=== PATIENT | female | born 1975 | race Caucasian/White ===

== ENCOUNTER → 2017-03-27 | Outpatient (CLI) | payer BC ==
[~2017-03-27] MED LIST: DOXY100C2 PO; FEXO1TAB49 PO; FLUT0.15 NAE; HYDR-5688 PO; IBUP-1450 PO; METR-163 PO; ONDA4TAB10 SL; OXYC-57 PO; VNTHFA/IN INH
== END | disposition home or self-care (01) ==
LOC: C.PAPS 14:07
PROVIDERS: ATTEND Obstetrics & Gynecology
DX: Z01.419 Encounter for gynecological examination (general) (routine) without abnormal findings (principal)

== ENCOUNTER → 2017-08-20 | Outpatient (CLI) | payer BC ==
[~2017-08-20] MED LIST changes: -DOXY100C2 PO; -METR-163 PO; -ONDA4TAB10 SL
--- NOTE | 2017-08-20 15:17 | MAMMOGRAPHY REPORT ---
BILATERAL DIGITAL SCREENING MAMMOGRAM TOMOSYNTHESIS WITH CAD: 08/20/2017 CLINICAL HISTORY: Routine screening. TECHNIQUE: Breast tomosynthesis in addition to standard 2D mammography was performed. Current study was also evaluated with a Computer Aided Detection (CAD) system. COMPARISON: Comparison is made to exams dated: 08/14/2016 stereotactic biopsy, 08/14/2016 mammogram, mammogram, 01/31/2016 mammogram, 08/02/2015 mammogram, and 07/26/2015 mammogram - [facility]. BREAST COMPOSITION: The tissue of both breasts is heterogeneously dense, which may obscure small mas ses. FINDINGS: A linear scar marker overlies the upper outer quadrant of the left breast, denoting an area of surgical excisional biopsy. Although atypia was identified at stereotactic biopsy, no residual a typia, DCIS or invasive carcinoma was identified at surgical excisional biopsy. There are diffuse sc attered and grouped benign-appearing microcalcifications bilaterally. No obvious new mass, asymmetry , focal area of architectural distortion or new suspicious calcifications are identified. IMPRESSION: ACR BI-RADS CATEGORY 1: NEGATIVE Expected postsurgical changes in the left upper outer quadrant, without mammographic evidence of gauri gnancy bilaterally. A 1 year screening mammogram is recommended. The patient will receive written no tification of the results. Approximately 10% of breast cancers are not detected with mammography. A negative mammographic report should not delay biopsy if a clinically suggestive mass is present. Analia Obrien M.D. ay/:08/20/2017 12:44:12 Costume Shop Manager: Arlette ROBLES(R)(M), [facility] letter sent: Normal 1/2 BI-RADS Code: ACR BI-RADS Category 1: Negative
== END | disposition home or self-care (01) ==
LOC: C.MAMM 11:06
PROVIDERS: ATTEND Surgery
DX: Z12.31 Encounter for screening mammogram for malignant neoplasm of breast (principal); N64.89 Other specified disorders of breast

== ENCOUNTER → 2017-09-02 | Outpatient (CLI) | payer BC ==
[~2017-09-02] MED LIST changes: -FEXO1TAB49 PO; -FLUT0.15 NAE; -OXYC-57 PO; -VNTHFA/IN INH
[2017-09-02 16:35] LABS: BASO % 0.3 %; BASO ABS # 0.02 K/uL (0-0.2); COMPLETE YES; EOS % 2.5 %; HEMATOCRIT 39.4 % (37-47); IG% 0.3 %; LYMPH % 31.3 %; LYMPH ABS # 2.16 K/uL (1.2-3.4); MEAN CELL VOLUME 95.4 fL (80-100); MEAN CORPUSCULAR HEMOGLOBIN 32.9 pg (25-34); MEAN CORPUSCULAR HGB CONC 34.5 g/dl (32-36); MEAN PLATELET VOLUME 9.3 fL (7.4-10.4); MONO % 7.8 %; NEUT % 57.8 %; PLATELET COUNT 294 K/uL (130-400); RED BLOOD COUNT 4.13 M/uL (4.2-5.4); WHITE BLOOD COUNT 6.89 K/uL (4.8-10.8)
== END | disposition home or self-care (01) ==
LOC: C.LAB1850 15:38
PROVIDERS: ATTEND Obstetrics & Gynecology
DX: Z01.812 Encounter for preprocedural laboratory examination (principal)

== ENCOUNTER 2017-09-12 10:15 | Observation (INO) | payer BC ==
[~2017-09-12] VITALS: Ht 170.2 cm; Wt 60.0 kg
[2017-09-12] VITALS (12 sets, daily range): BP systolic 89–120; BP diastolic 49–81; PULSE 57–83; TEMP 36.3–37; O2SAT 97–100; Ht 170.2 cm; Wt 60.0 kg
[~2017-09-12 10:15] MED LIST changes: +ATROPINE SULFATE 0.1 MG/ML 5ML SYR IV PRN; +EpHEDrine SULFATE INJ 50 MG/ML AMP IV PRN; +FEXO1TAB49 PO; +FLUT0.15 NAE; -HYDR-5688 PO; +HYDROmorphone INJ 1 MG/ML SYR IV PRN; +LABETALOL HCL IV 5 MG/ML 20ML IV PRN; +LACTATED RINGER'S 1000ML 1,000 ML IV SCH; +MEPERIDINE HCL 25 MG/ML CARP IV PRN; +ONDANSETRON INJ 2 MG/ML 2 ML VIAL IV PRN; +VNTHFA/IN INH
[2017-09-12] MEDS ORDERED: MIDAZOLAM HCL 1 MG/ML 2ML VIAL ONE (11:02)
[2017-09-12] MEDS ORDERED: FENTANYL CITRATE INJ 50 MCG/1 ML 2 ML VIAL ONE ×3 (11:02→12:49)
[2017-09-12 11:14] LABS: PREG INTERNAL NEGATIVE QC NEG CLEAR BACKGROUND; PREG INTERNAL POSITIVE QC POS CONTROL LINE
[2017-09-12] MEDS ORDERED: PROPOFOL IV EMULSION 10 MG/ML 20 ML VIAL IV ONE (11:14)
[2017-09-12] MEDS ORDERED: LIDOCAINE 2% 20 MG/ML 5ML SYR ONE (11:14)
--- NOTE | 2017-09-12 11:45 | History & Physical Bridge Note ---
H&P Re-Evaluation Bridge Note: I have examined the patient, reviewed the History & Physical and in the interval since the performance of the History & Physical I have noted the following changes of clinical significance: No changes noted
[2017-09-12] MEDS ORDERED: ONDANSETRON INJ 2 MG/ML 2 ML VIAL ONE (12:13)
[2017-09-12] MEDS ORDERED: DEXAMETHASONE SOD INJ 4 MG/ML VIAL ONE (12:13)
--- NOTE | 2017-09-12 13:24 | [facility] Operative Report ---
Operative Report Operative Date Sep 12, 2017. Pre-Operative Diagnosis Rectocele Post-Operative Diagnosis Same as preop Procedure(s) Performed Rectocele Repair Surgeon Dr. Hancock Feed Mixer Surgeon(s) Dr. Parham Estimated Blood Loss 150 cc Findings Moderate to large high rectocele. Minimal to moderate cystocele. Grade 2 uterine descent only with pulling with an Allis clamp. Fluids 1000 Specimens A: vaginal tissue Drains Simeon, vaginal packing Anesthesia Gen. Complication(s) None Disposition Recovery Room / PACU Indications 42-year-old who is completed her childbearing with history of pelvic pressure and bulge at the introitus after lifting a heavy sofa. On evaluation in the office only a significant rectocele could be noted. The patient felt that this tissue at her introitus was new. Even with supine and standing examination I could not see a significant cystocele or uterine prolapse. She desired repair of the rectocele to see if that would improve her symptoms. No rectal splinting. She was advised about pelvic floor surgeon consult but desired to proceed more immediately with repair locally. Risks of the procedure were reviewed and most importantly included nonresolution of her complaints, possibly requiring further procedures or evaluations.. Description of Procedure The patient was taken to the operating room and identified. After adequate general anesthesia was obtained she was placed in the dorso lithotomy position and prepped and draped in usual sterile fashion. A Simeon catheter was placed. Attention was turned to the patient's vagina where her vaginal prolapse was examined and with Valsalva provided by anesthesia revealed the findings as noted above. The patient did have a normal introitus and in fact the rectocele began about a couple centimeters above the opening of the vagina. Allis clamps were used as traction to create a triangular shaped area of excision at the perineum. Using traction and the Metzenbaum scissors the space between the vagina and the underlying rectum was dissected. This is carried to the apex of the rectocele and planned rectocele repair. Using both sharp and blunt dissection the rectal fascia was dissected off of the overlying vagina. With interrupted sutures of 0 Vicryl the fascia was reapproximated across the midline. The vaginal tissues were then trimmed and reapproximated in a running interlocking fashion using 0 Vicryl. A perineorrhaphy was also performed. Bleeding sites were cauterized along the way. A rectal exam was performed to better assess the apex of the rectocele prior to placing the bridging sutures.. The vaginal exam at the end of the closure included normal admission of fingers in the vagina with normal caliber of the vagina noted. The vagina was then packed with [place] covered vaginal packing. All the instruments were removed. The patient was returned to the supine position and awoken from anesthesia. She was taken to the recovery room in stable condition. All sponge, lap and needle counts are correct 2 I attest to the content of the Intraoperative Record and any orders documented therein. Any exceptions are noted below.
[2017-09-12] MEDS: FENTANYL CITRATE INJ 50 MCG/1 ML 2 ML VIAL IV PRN ×4 (13:29→13:44)
[2017-09-12] MEDS ORDERED: OXYCODONE/ACETAMINOPHEN 5-325 TAB PO PRN (13:30)
[2017-09-12] MEDS ORDERED: ZOLPIDEM TARTRATE 5 MG TAB PO PRN (13:30)
[2017-09-12] MEDS ORDERED: IBUPROFEN 600 MG TAB PO PRN (13:30)
[2017-09-12] MEDS ORDERED: ONDANSETRON INJ 2 MG/ML 2 ML VIAL IV PRN (13:30)
[2017-09-12] MEDS ORDERED: ACETAMINOPHEN 325 MG TAB PO PRN (13:30)
[2017-09-12] MEDS ORDERED: KETOROLAC TROMETHAMINE 30 MG/ML VIAL IV. PRN (13:30)
--- NOTE | 2017-09-12 14:26 | Anesthesiology Progress Note ---
Anesthesia Post Op Note Date & Time Sep 12, 2017 at 14:26 Vital Signs Pain Intensity: 4 Vital Signs Past 12 Hours Date Time Temp Pulse Resp B/P (MAP) Pulse Ox O2 Delivery O2 Flow Rate FiO2 09/12/17 14:10 62 18 110/66 99 Nasal Cannula 2 09/12/17 14:00 60 18 114/63 99 Nasal Cannula 2 09/12/17 13:50 36.4 60 18 111/62 100 Nasal Cannula 2 09/12/17 13:40 65 18 111/70 100 Oxymask 5 09/12/17 13:30 78 18 115/59 100 Oxymask 5 09/12/17 13:24 36.4 74 18 115/63 100 Oxymask 5 09/12/17 10:39 36.7 60 18 109/74 (86) 100 Room Air Notes Mental Status: alert / awake / arousable, participated in evaluation Pt Amnestic to Procedure: Yes Nausea / Vomiting: adequately controlled Pain: adequately controlled Airway Patency, RR, SpO2: stable & adequate BP & HR: stable & adequate Hydration State: stable & adequate Anesthetic Complications: no major complications apparent
[2017-09-12] MEDS ORDERED: MoRPHine SULFATE 2 MG/ML CARP IV PRN (15:00)
[2017-09-12] MEDS ORDERED: MoRPHine SULFATE 2 MG/ML CARP ONE (15:07)
[2017-09-12] MEDS ORDERED: MoRPHine SULFATE 2 MG/ML CARP IV STA ×2 (16:45)
[2017-09-12] MEDS ORDERED: NALOXONE HCL 0.4 MG/1 ML VIAL/CARP IV PRN (16:45)
[2017-09-12] MEDS ORDERED: SODIUM CHLORIDE 0.9% 1000ML 1,000 ML IV SCH (16:45)
[2017-09-12 16:51] LABS: HEMATOCRIT 37.5 % (37-47)
--- NOTE | 2017-09-12 16:52 | Progress Note ---
Progress Note Date of Service Sep 12, 2017. Progress Note ctsp who complains of 10/10 pain. she feels its rectal and pulsating. by time i see pt she is also noting tingling in hands and feet. vss, pox 100% on RA, pulse 70s, urine output looks good, clear and draining actively perineum, packing with red blood, pad underneath with dollar size bright blood spot/1hr. a/ postop from posterior repair p/ need to get better pain control. 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 i think her tingling is due to anxiety. plan stat h/h, packing has more blood but not so far seems excessive especially with her very vascular tissue at time of surgery. would not opt to remove packing now. will need to monitor. discussed with patient and her spouse.
[2017-09-12] MEDS: IV FLUIDS COMPLETED PRN (17:25)
[2017-09-12] MEDS: MoRPHine SULFATE 1 MG/ML 50 ML PCA CASS IV PRN ×2 (17:25→22:54)
[2017-09-12] MEDS ORDERED: LACTATED RINGER'S 1000ML 1,000 ML IV SCH ×2 (18:01→23:55)
--- NOTE | 2017-09-12 18:54 | Progress Note ---
Progress Note Date of Service Sep 12, 2017. Progress Note Reevaluated pt. better pain control with manager style morphine. she feels better and no longer has throbbing pain. She does have bright red blood on pad in area of about half dollar size. Hgb was stable. she is tolerating po. vss, af, urine output ok rolled her to side and no collections or tenderness in buttocks. doubt excessive ongoing bleeding. she had nice vascular premenopausal tissue so likely related to suture line. keep packing in. prepare for possible need to repack tomorrow. watch urine output and recheck hgb in am. if all normal. plan to remove packing/gaines and ambulate and see how her pain is controlled on oral meds. patient and partner aware of plan.
[2017-09-12] MEDS: DOCUSATE SODIUM 100 MG CAP PO SCH (21:05)
[2017-09-13 03:50] VITALS: BP 101/59; PULSE 60; TEMP 36.4; O2SAT 98
[2017-09-13 06:27] LABS: HEMATOCRIT 27.7 % (37-47)
[2017-09-13] MEDS: MoRPHine SULFATE 1 MG/ML 50 ML PCA CASS IV PRN (07:04)
[2017-09-13] MEDS: OXYCODONE/ACETAMINOPHEN 5-325 TAB PO PRN ×2 (07:32→12:11)
[2017-09-13 07:35] VITALS: BP 99/60; PULSE 50; TEMP 36.7; O2SAT 100
--- NOTE | 2017-09-13 07:37 | Progress Note ---
Progress Note Date of Service Sep 13, 2017. Progress Note s/ pt feeling much better this am. no n/v. ate yesterday but not much appetite. no cp/sob. gaines in place. ready to move. o/ af vss abd soft, perineum with bloody packing, removed and did have dark blood fairly saturated. gaines removed as well, last urine output 300cc in 1hr. h /h noted a/ pod #1 s/p posterior repair p/ we will see how pt does as far as bleeding over next few hours, regular diet and await void. if stable, plan d/c home. will need to consider using iron with time but really needs to have soft and regular bowel movements and plans colace and miralax at home.
[2017-09-13] MEDS ORDERED: OXYC-57 PO (07:38)
--- NOTE | 2017-09-13 07:44 | Discharge Instructions ---
Discharge Instructions Date of Service Sep 13, 2017. Admission Reason for Admission: Rectocele Discharge Discharge Diagnosis / Problem: after surgery Discharge Goals Goal(s): Routine recovery after surgery Activity Recommendations Activity Limitations: as noted below . Instructions / Follow-Up Instructions / Follow-Up ACTIVITY RECOMMENDATIONS: Activity: * During the first few days at home, your primary activity is in-house walking interspersed with rest periods. Preparing lunch for yourself is acceptable. You may go up and down stairs. Try to stay up progressively longer periods of time to help regain your strength more quickly. * You may drive a car and make brief shopping trips at the end of one week as long as you are not taking narcotic medications. * Lifting should not exceed 15-20 pounds during the 6 weeks after surgery-- nothing heavier than a milk jug in one hand. * Sexual intercourse can usually be resumed about 6 weeks after surgery depending on findings at your post-operative examinations. Bathing: * Showers or baths are permissible. Sitting in four to six inches of hot water (sitz bath) is often comforting after vaginal surgery and is permitted at any time. A sitz bath at bedtime can also assist in a better night's sleep. SPECIAL CARE INSTRUCTIONS: The major discomforts related to surgery have now passed and progressive improvement will occur. The tight uncomfortable feeling in the abdominal, pelvic and back area will gradually fade away. Fatigue may take the longest to disappear; your energy level may take several weeks to return to normal. At times you may become frustrated or impatient over not feeling as well or doing as much as you'd like , but this is a normal reaction to surgery and will pass with time. Vaginal Discharge: * Odorous, blood-tinged or brownish discharge may be present for one to three weeks after surgery. * Pads should be used and not tampons. * Stitches may be passed vaginally. * Bleeding may be somewhat increased approximately two weeks after surgery, which is related to the stitches dissolving. * If bleeding becomes free flowing, notify our office at . Bowel Care: * Constipation after surgery is very common. Foods that promote bowel activity (bran, fruit, prune juice) should be included in your diet. * A capsule, DIALOSE-PLUS, can be purchased without a prescription and can be taken daily (one or two capsules) to assist in promoting bowel activity. * If you have had vaginal surgery involving your rectum, we will discuss this when discharged from the hospital. use colace 100mg by mouth twice a day and capful of miralax to try to keep your bowels very soft and regular Temperature: * Any fever above 100.4 degrees F should be reported to our office at [phone]. FOLLOW-UP: Post-Operative Appointments: * You will need to call the office at soon after discharge to make the appointment for your post-op check-up if it has not already been scheduled. Plan a 6 week postoperative check. We may decide to see you sooner depending on how your recovery is doing. * Additional information regarding activity, sexual intercourse and when to return to work will be given at this appointment. WE WISH YOU A SPEEDY RECOVERY! Current Hospital Diet Patient's current hospital diet: Regular Diet Discharge Diet Recommended Diet: Regular Diet Procedures Procedures Performed: Rectocele Repair Pending Studies Studies pending at discharge: yes List of pending studies: vaginal tissue pathology Medical Emergencies . Who to Call and When: Medical Emergencies: If at any time you feel your situation is an emergency, please call 911 immediately. . Non-Emergent Contact Non-Emergency issues call your: Internal Communications Writer . . "Provider Documentation" section prepared by Estelita Hancock. . VTE Core Measure Inpt VTE Proph given/why not?: SCD's [place] Drug Monitoring Program Search Results: patient reviewed within database, no issues identified
[2017-09-13] MEDS: DOCUSATE SODIUM 100 MG CAP PO SCH (10:23)
[2017-09-13] MEDS: IV FLUIDS COMPLETED PRN (10:46)
[2017-09-13 12:00] VITALS: BP 94/54; PULSE 56; TEMP 36.9; O2SAT 100
[2017-09-13 13:25] VITALS: BP 94/54; PULSE 56; TEMP 36.9; O2SAT 100
--- NOTE | 2017-09-15 14:07 | DISCHARGE SUMMARY ---
ADMISSION DIAGNOSIS: Rectocele. DISCHARGE DIAGNOSIS: Same. PROCEDURE: Posterior repair. BRIEF HISTORY AND HOSPITAL COURSE: A 42-year-old 3, para 3 with a chief complaint of pressure and bulge at the introitus with findings on exam of rectocele. No other significant prolapses were noted. The patient did not want to wait and wanted to proceed with surgical management. She did not perform any rectal splinting. She was sure that this bulge was of new onset after she did heavy lifting. She was aware of the need to stay overnight as well as limit her lifting for the next 6 weeks. Her postop course was complicated by significant blood loss resulting in hemoglobin of 9.9. This was much different from her admission hemoglobin of 13.2. She had the packing and Simeon catheter removed after postop day #1 and was able to tolerate a regular diet, void spontaneously without difficulty, ambulating without difficulty and her pain was well controlled and was discharged to home. She was to follow up in 6 weeks for reevaluation and discharge instructions were reviewed with her at length. She was given a small amount of pain medication prescription. She was advised to keep her bowels soft and regular by using stool softeners as well as MiraLax as needed.
== END 2017-09-13 13:25 | disposition home or self-care (01) ==
LOC: C.ACU 10:15 → C.MS4N 11:00 → ENRESERV 14:04
PROVIDERS: ADMIT Obstetrics & Gynecology; ATTEND Obstetrics & Gynecology
DX: N81.6 Rectocele (principal); Z88.0 Allergy status to penicillin; Z91.040 Latex allergy status; Z98.890 Other specified postprocedural states; Z98.818 Other dental procedure status; Z90.89 Acquired absence of other organs; Z82.49 Family history of ischemic heart disease and other diseases of the circulatory system; Z83.3 Family history of diabetes mellitus; Z80.0 Family history of malignant neoplasm of digestive organs; Z80.3 Family history of malignant neoplasm of breast

== ENCOUNTER 2017-09-18 21:10 | Emergency (ER) | payer BC ==
[~2017-09-18] VITALS: Ht 170.2 cm; Wt 60.4 kg
[~2017-09-18 21:10] MED LIST changes: -ATROPINE SULFATE 0.1 MG/ML 5ML SYR IV PRN; -EpHEDrine SULFATE INJ 50 MG/ML AMP IV PRN; -HYDROmorphone INJ 1 MG/ML SYR IV PRN; -LABETALOL HCL IV 5 MG/ML 20ML IV PRN; -LACTATED RINGER'S 1000ML 1,000 ML IV SCH; -MEPERIDINE HCL 25 MG/ML CARP IV PRN; -ONDANSETRON INJ 2 MG/ML 2 ML VIAL IV PRN; +OXYC-57 PO
[2017-09-18] MEDS ORDERED: SODIUM CHLORIDE 0.9% 1000ML 1,000 ML IV STA (22:28)
[2017-09-18] MEDS ORDERED: ONDANSETRON INJ 2 MG/ML 2 ML VIAL IV STA (22:28)
--- NOTE | 2017-09-18 22:53 | DIAGNOSTIC IMAGING REPORT ---
CHEST ONE VIEW PORTABLE CLINICAL HISTORY: Fever. Recent surgery. COMPARISON STUDY: No previous studies for comparison. FINDINGS: Lung volumes are normal. No consolidation is identified. No pneumothorax or pleural effusion is noted. Pulmonary vascularity is normal. Cardiomediastinal silhouette is normal. IMPRESSION: No acute cardiopulmonary findings. Electronically signed by: Sylvester Rae M.D. 09/18/2017 10:51 PM Dictated Date/Time: 09/18/2017 10:51 PM
[2017-09-18 23:10] VITALS: O2SAT 100
[2017-09-18 23:12] VITALS: Ht 170.2 cm; Wt 60.4 kg
[2017-09-18 23:13] LABS: BASO % 0.1 %; BASO ABS # 0.01 K/uL (0-0.2); COMPLETE YES; EOS % 1.2 %; HEMATOCRIT 31.9 % (37-47); IG% 0.3 %; LYMPH % 17.8 %; LYMPH ABS # 2.12 K/uL (1.2-3.4); MEAN CELL VOLUME 92.5 fL (80-100); MEAN CORPUSCULAR HEMOGLOBIN 32.8 pg (25-34); MEAN CORPUSCULAR HGB CONC 35.4 g/dl (32-36); MEAN PLATELET VOLUME 9.3 fL (7.4-10.4); MONO % 8.2 %; NEUT % 72.4 %; PLATELET COUNT 292 K/uL (130-400); RED BLOOD COUNT 3.45 M/uL (4.2-5.4)
[2017-09-18] MEDS ORDERED: OPTIRAY 320 IV PRN (23:15)
[2017-09-18 23:22] LABS: ISTAT CREATININE 0.6 mg/dl (0.6-1.3); ISTAT HEMOGLOBIN 10.2 g/dl (12.0-16.0); ISTAT IONIZED CALCIUM 1.14 mmol/l (1.12-1.32)
[2017-09-18 23:29] LABS: PROTHROMBIN TIME (PATIENT) 10.4 SECONDS (9.0-12.0)
[2017-09-18 23:32] LABS: BUN/CREATININE RATIO 11.7 (10-20); CALCIUM 8.8 mg/dl (8.5-10.1); CREATININE 0.73 mg/dl (0.60-1.20); POTASSIUM 3.5 mmol/L (3.5-5.1)
[2017-09-18 23:54] LABS: PREG INTERNAL NEGATIVE QC NEG CLEAR BACKGROUND; PREG INTERNAL POSITIVE QC POS CONTROL LINE
[2017-09-18 23:56] LABS: URINE APPEARANCE CLEAR (CLEAR); URINE BILIRUBIN NEG (NEG); URINE COLOR YELLOW; URINE EPITHELIAL CELL AUTO 0-5 /lpf (0-5); URINE NITRITE NEG (NEG); URINE SPECIFIC GRAVITY 1.006 (1.000-1.030); UROBILINOGEN NEG (NEG); ZZUR CULT IF INDIC CLEAN CATCH NO
[2017-09-18 23:58] LABS: MANUAL MICROSCOPIC REQUIRED? NO; REVIEW REQ? NO
[2017-09-19] MEDS ORDERED: METRONIDAZOLE 500MG / 100ML NSS IV STA (01:19)
[2017-09-19] MEDS ORDERED: METR-163 PO (01:25)
[2017-09-19] MEDS ORDERED: DOXY100C2 PO (01:25)
[2017-09-19] MEDS ORDERED: ONDA4TAB10 SL (01:26)
[2017-09-19] MEDS ORDERED: DOXYCYCLINE HYCLATE 100 MG CAP PO ONE (01:30)
[2017-09-19 01:38] VITALS: TEMP 36.9
[2017-09-19] MEDS ORDERED: ACETAMINOPHEN 500 MG TAB PO STA (02:11)
[2017-09-19 02:50] VITALS: BP 100/44; PULSE 61; O2SAT 97
--- NOTE | 2017-09-19 03:08 | EMERGENCY ROOM VISIT NOTE ---
History First contact with patient: 22:06 Chief Complaint: ILLNESS Stated Complaint: NAUSEA,DIZZINESS,HEADACHE, TEMP History of Present Illness The patient is a 42 year old female who presents to the Emergency Room with complaints of nausea, headache, fever, chills lower abdominal cramping and vaginal bleeding who just had a rectocele repair on 09/[address] Hancock. Patient states she was doing better until yesterday when she started to feel sick with fever, chills, nausea and abdominal cramping. Patient states she was anemic when she left the hospital. Patient states she's normally very healthy female. She quit taking her pain medicine. She has just been taking Motrin. She states she's been having slow steady vaginal bleeding which is unchanged. Patient is concerned that she had a fever today of 100.6. She has been taken Motrin [id number]. She called the on-call doctor and was advised to follow-up tomorrow in the office but symptoms got worse and she came here. Patient denies chest pain, dyspnea, cough, congestion, headache, neck stiffness , sore throat, urinary symptoms. Patient states she's been slightly more active the last few days. Review of Systems See HPI for pertinent positives & negatives. A total of 10 systems reviewed and were otherwise negative. Past Medical/Surgical History Medical Problems: (1) Rectocele Social History Smoking Status: Never Smoker Smokeless Tobacco Use: No Alcohol Use: occasionally Drug Use: none Marital Status: Housing Status: lives with family Occupation Status: employed Current/Historical Medications Scheduled Doxycycline Hyclate (Vibramycin), 100 MG PO BID Fexofenadine Hcl (Dahiana Allergy), 180 MG PO HS Fluticasone Propionate (Nasal) (Flonase Allergy Relief), 2 SPRAYS BRIAN DAILY Metronidazole (Flagyl), 500 MG PO BID Ondasetron Odt (Zofran Odt), 4 MG SL Q6H Scheduled PRN Albuterol Hfa (Ventolin Hfa), 2 PUFFS INH UD PRN for SOB/Wheezing Ibuprofen (Motrin), 600 MG PO Q8 PRN for Pain Oxycodone/Acetaminophen 5MG/325MG (Percocet 5MG/325MG), 1-2 TAB PO Q4H PRN for Pain (pain scale 6-10) Physical Exam Vital Signs Date Time Temp Pulse Resp B/P (MAP) Pulse Ox O2 Delivery O2 Flow Rate FiO2 09/19/17 02:50 61 20 100/44 97 Room Air 09/19/17 01:38 36.9 65 20 103/64 95 Room Air 09/19/17 00:17 66 112/72 98 Room Air 73 107/68 80 107/74 09/18/17 23:11 69 18 118/73 99 Room Air 09/18/17 23:10 100 Room Air 09/18/17 21:24 37.6 87 16 134/81 100 Room Air Physical Exam VITALS: Vitals are noted on the nurse's note and reviewed by myself. Vital signs stable. GENERAL: Pleasant female, in no acute distress, nondiaphoretic, well-developed well-nourished. SKIN: The skin was without rashes, erythema, edema, or bruising. There is no tenting of the skin. Capillary reflex less than 2 seconds. HEAD: Normocephalic atraumatic. EARS: External auditory canals clear, tympanic membranes pearly heath without erythema or effusion bilaterally. EYES: Pupils equal round and reactive to light and accommodation. Conjunctivae without injection, sclerae without icterus. Extraocular movements intact. NOSE: Patent, turbinates without inflammation or discharge. No sinus tenderness. MOUTH: Mucous membranes mildly dry. Pharynx without erythema or exudate. Uvula midline. Airway patent. Tongue does not deviate. NECK: Supple without nuchal rigidity. No lymphadenopathy. No thyromegaly. Cervical spine is nontender. No JVD. HEART: Regular rate and rhythm without murmurs gallops or rubs. LUNGS: Clear to auscultation bilaterally without wheezes, rales or rhonchi. No dullness to percussion. No retractions or accessory muscle use. ABDOMEN: Positive bowel sounds x 4. Normal tympanic percussion. Soft, tender to palpation lower abdomen, no CVA tenderness, without masses or organomegaly. Nguyen sign negative. No guarding or rebound tenderness. exam: Normal external female genitalia, minimal blood in the vault with surgical incision intact. Culture taken and sent. No malodorous smell, no yellow or white discharge. Fish Roe Technician present MUSCULOSKELETAL: No muscle atrophy, erythema, or edema noted. NEURO: Patient was alert and oriented to person place and time. Normal sensation to light and sharp touch. No focal neurological deficits. Medical Decision & Procedures Laboratory Results 09/18/17 22:50 Red Blood Count 3.45, Mean Corpuscular Volume 92.5, Mean Corpuscular Hemoglobin 32.8, Mean Corpuscular Hemoglobin Concent 35.4, Mean Platelet Volume 9.3, Neutrophils (%) (Auto) 72.4, Lymphocytes (%) (Auto) 17.8, Monocytes (%) (Auto) 8.2, Eosinophils (%) (Auto) 1.2, Basophils (%) (Auto) 0.1, Neutrophils # (Auto) 8.62, Lymphocytes # (Auto) 2.12, Monocytes # (Auto) 0.98, Eosinophils # (Auto) 0.14, Basophils # (Auto) 0.01 09/18/17 22:50 Test 09/18/17 22:50 09/18/17 23:06 09/18/17 23:10 White Blood Count 11.90 K/uL (4.8-10.8) Red Blood Count 3.45 M/uL (4.2-5.4) Hemoglobin 11.3 g/dL (12.0-16.0) Hematocrit 31.9 % (37-47) Mean Corpuscular Volume 92.5 fL (80-100) Mean Corpuscular Hemoglobin 32.8 pg (25-34) Mean Corpuscular Hemoglobin Concent 35.4 g/dl (32-36) Platelet Count 292 K/uL (130-400) Mean Platelet Volume 9.3 fL (7.4-10.4) Neutrophils (%) (Auto) 72.4 % Lymphocytes (%) (Auto) 17.8 % Monocytes (%) (Auto) 8.2 % Eosinophils (%) (Auto) 1.2 % Basophils (%) (Auto) 0.1 % Neutrophils # (Auto) 8.62 K/uL (1.4-6.5) Lymphocytes # (Auto) 2.12 K/uL (1.2-3.4) Monocytes # (Auto) 0.98 K/uL (0.11-0.59) Eosinophils # (Auto) 0.14 K/uL (0-0.5) Basophils # (Auto) 0.01 K/uL (0-0.2) RDW Standard Deviation 38.6 fL (36.4-46.3) RDW Coefficient of Variation 11.3 % (11.5-14.5) Immature Granulocyte % (Auto) 0.3 % Immature Granulocyte # (Auto) 0.03 K/uL (0.00-0.02) Prothrombin Time 10.4 SECONDS (9.0-12.0) Prothromb Time International Ratio 1.0 (0.9-1.1) Activated Partial Thromboplast Time 26.5 SECONDS (21.0-31.0) Partial Thromboplastin Ratio 1.0 Urine Color YELLOW Urine Appearance CLEAR (CLEAR) Urine pH 8.0 (4.5-7.5) Urine Specific [place] 1.006 (1.000-1.030) Urine Protein NEG (NEG) Urine Glucose (UA) NEG (NEG) Urine Ketones NEG (NEG) Urine Occult Blood 3+ (NEG) Urine Nitrite NEG (NEG) Urine Bilirubin NEG (NEG) Urine Urobilinogen NEG (NEG) Urine Leukocyte Esterase SMALL (NEG) Urine WBC (Auto) 1-5 /hpf (0-5) Urine RBC (Auto) 0-4 /hpf (0-4) Urine Hyaline Casts (Auto) 0 /lpf (0-5) Urine Epithelial Cells (Auto) 0-5 /lpf (0-5) Urine Bacteria (Auto) NEG (NEG) Est Creatinine Clear Calc Drug Dose 93.8 ml/min Estimated GFR () 116.1 Estimated GFR (Non- 100.2 BUN/Creatinine Ratio 11.7 (10-20) Calcium Level 8.8 mg/dl (8.5-10.1) Total Bilirubin 0.5 mg/dl (0.2-1) Aspartate Amino Transf (AST/SGOT) 11 U/L (15-37) Alanine Aminotransferase (ALT/SGPT) 11 U/L (12-78) Alkaline Phosphatase 45 U/L (45-117) Total Protein 7.5 gm/dl (6.4-8.2) Albumin 3.8 gm/dl (3.4-5.0) Globulin 3.7 gm/dl (2.5-4.0) Albumin/Globulin Ratio 1.0 (0.9-2) Human Chorionic Gonadotropin, Qual NEG (NEG) Bedside Lactic Acid Venous 0.38 mmol/L (0.90-1.70) Bedside Hemoglobin 10.2 g/dl (12.0-16.0) Bedside Hematocrit 30 % (37-47) Bedside Sodium 138 mEq/L (135-144) Bedside Potassium 3.6 mEq/L (3.3-5.0) Bedside Chloride 103 mEq/L (101-112) Bedside Total CO2 22 mEq/l (24-31) Anion Gap 17.0 mmol/L (16-25) Bedside Blood Urea Nitrogen 7 mg/dl (7-18) Bedside Creatinine 0.6 mg/dl (0.6-1.3) Bedside Glucose (other) 104 mg/dl (70-99) Bedside Ionized Calcium ([place]) 1.14 mmol/l (1.12-1.32) Medications Administered Medications (Trade) Dose Ordered Sig/Grace Route Start Time Stop Time Status Last Admin Dose Admin Sodium Chloride 1,000 ml @ 999 mls/hr Q1H1M STAT IV 09/18/17 22:28 09/18/17 23:28 DC 09/18/17 22:57 999 MLS/HR Ondansetron HCl (Zofran Inj) 4 mg NOW STAT IV 09/18/17 22:28 09/18/17 22:31 DC 09/18/17 22:57 4 MG Metronidazole (Flagyl / Nss) 500 mg NOW STAT IV 09/19/17 01:19 09/19/17 01:20 DC 09/19/17 01:37 500 MG Doxycycline Hyclate (Vibramycin Cap) 100 mg ONE ONCE PO 09/19/17 01:30 09/19/17 01:31 DC 09/19/17 01:36 100 MG Acetaminophen (Tylenol Tab) 1,000 mg NOW STAT PO 09/19/17 02:11 09/19/17 02:12 DC 09/19/17 02:49 1,000 MG ED Course Prior records/ancillary studies reviewed. Triage Nursing notes reviewed. Additional history obtained from family The patient's history was concerning for fever with recent vaginal surgery. Differential diagnosis: Etiologies such as postsurgical infection, viral syndrome, otitis, pharyngitis, pneumonia, influenza, meningitis, urinary tract infection, sepsis, bacteremia, as well as others were entertained. Physical examination: Patient is alert and tolerating fluids ER treatment provided: IV fluids, Flagyl, doxycycline On reassessment the patient felt better. Diagnostics interpreted by me: The labs revealed mild leukocytosis. Improving H&H. Negative urine Imaging studies: CT ABDOMEN & PELVIS: Limited without enteric contrast. Probable thickening of rectosigmoid colon. Rectangular appearing air collection or reveal lucent foreign body in the distal sigmoid colon. Poorly defined complex fluid or other soft tissue material in the pelvis. Difficult to assess for and exclude any extraluminal collections in the pelvis Visualized segments of the appendix are unremarkable. Prominent vasculature in the pelvis. Radiologist: Antonella Wesley M.D. CLINICAL HISTORY: Fever. Recent surgery. COMPARISON STUDY: No previous studies for comparison. FINDINGS: Lung volumes are normal. No consolidation is identified. No pneumothorax or pleural effusion is noted. Pulmonary vascularity is normal. Cardiomediastinal silhouette is normal. IMPRESSION: No acute cardiopulmonary findings. Electronically signed by: Sylvester Rae M.D. Consultation: A consultation was placed with CAPSULE FILLING MACHINE OPERATOR, Dr. Parham. The case was discussed and diagnostics were reviewed. She states the CT seems consistent with postsurgical findings. She recommends Flagyl and doxycycline with outpatient follow-up in the next few days at Dr. Hancock. This appears to be consistent with fever with postsurgical infection. Patient was started on antibiotics. She felt much better after being medicated as above. She is advised to call in the morning to make a follow-up appointment within the next few days with Dr. Hancock or here in the ER sooner for high fevers , heavy bleeding, pain, worsening signs or symptoms or as needed. Patient is well-appearing. She is tolerating fluids. She had minimal bleeding on exam. Negative lactic acid. Blood cultures are pending. By the evaluation outlined above emergent etiologies such as otitis, pharyngitis, pneumonia, meningitis, urinary tract infection, sepsis, bacteremia, as well as others were deemed relatively unlikely. The pt informed about the findings as listed above. All questions were answered and pleased with the treatment. Return instructions were outlined and the patient was discharged in stable condition. Outpatient prescription management: Doxycycline, Flagyl Referral: The patient was referred back to their CAPSULE FILLING MACHINE OPERATOR for follow-up in 2 to 3 days for a recheck of the current condition. Case reviewed with my attending Medical Decision As above Medication Reconcilliation Current Medication List: was personally reviewed by me Blood Pressure Screening Patient's blood pressure: Normal blood pressure Impression Primary Impression: Infection associated with surgery Additional Impression: Fever Departure Information Dispostion Home / Self-Care Condition GOOD Prescriptions Ondasetron Odt (ZOFRAN ODT) 4 Mg Tab 4 MG SL Q6H for Nausea, #10 TAB Prov: Feli Crowell .MACRINA 09/19/17 Metronidazole (Flagyl) 500 Mg Tab 500 MG PO BID for 7 Days, #14 TAB Prov: Feli Crowell .MACRINA 09/19/17 Doxycycline Hyclate (VIBRAMYCIN) 100 Mg Cap 100 MG PO BID for 7 Days, #14 CAP Prov: Feli Crowell PA-C 09/19/17 Forms WORK / SCHOOL INSTRUCTIONS, HOME CARE DOCUMENTATION FORM, IMPORTANT VISIT INFORMATION Patient Instructions Fever - [facility], My [facility] Additional Instructions DO NOT drive, drink alcohol, operate machinery, or perform dangerous activities today. You were given medications in the ER that can affect your ability to safely function or operate a vehicle. Doxycycline 100mg: Take one pill twice daily for seven days for your infection. Take with food, but avoid dairy. Avoid prolonged sun exposure since this medication makes you temporarily more susceptible to sunburns. All antibiotics can cause diarrhea. If this occurs and you feel worse or it does not resolve in 1-2 days follow up with your doctor or return to the Emergency Department as this could be signs of serious underlying problems. Any medication can cause an allergic reaction, stop the pills immediately and return to the ER for rash, hives, breathing difficulties, or swelling. Metronidazole(Flagyl) 500mg: Take one pill 2 times daily for 7 days for your infection. DO NOT drink alcohol or take alcohol containing products with this medication. Any medication can cause an allergic reaction, stop the pills immediately and return to the ER for rash, hives, breathing difficulties, or swelling. Acetaminophen(Tylenol) may be used for fever or pain. Use 1000mg every six hours as needed. Avoid using more than 3000mg in a 24 hour period. AND/OR Ibuprofen(Motrin, Advil) may be used for fever or pain. Use 600mg every six hours as needed. Take with food. Avoid using more than 2400mg in a 24 hour period. Do not use 2400mg per day for more than three consecutive days without physician direction. Prolonged inappropriate use can lead to stomach upset or ulcers. Rest. Stay well hydrated. No strenuous activity or intercourse until cleared by CAPSULE FILLING MACHINE OPERATOR. Zofran 4 tablet every 6 hours as needed for nausea and vomiting. Rest and drink plenty of fluids as tolerated. Continue current medications. Return to the ER immediately for worsening or persistent heavy vaginal bleeding , abdominal pain, vomiting, fevers, chest pains, difficulty breathing, worsening of your condition, or as needed. Follow up with your CAPSULE FILLING MACHINE OPERATOR in 2-3 days for a recheck of your current condition. Problem Qualifiers Additional Impression: Fever Fever type: unspecified Qualified Codes: R50.9 - Fever, unspecified
--- NOTE | 2017-09-19 07:35 | DIAGNOSTIC IMAGING REPORT ---
CT SCAN OF THE ABDOMEN AND PELVIS WITH IV CONTRAST CLINICAL HISTORY: Rectal pain. Reported history of recent rectal surgery. Fever. COMPARISON STUDY: No priors. TECHNIQUE: Following the IV administration of 93 cc of Optiray 320, CT scan of the abdomen and pelvis is performed from the lung bases to the proximal femora. Images are reviewed in the axial, sagittal, and coronal planes. IV contrast was administered without complication. A dose lowering technique was utilized adhering to the principles of ALARA. CT DOSE: 287.17 mGy.cm FINDINGS: Lung bases: The heart is normal in size and without pericardial effusion. A small fat-containing Bochdalek hernia is noted at the right lung base. The lung bases are otherwise clear. Liver: The contrast-enhanced liver is normal in size, contour, and attenuation. There is no intrahepatic biliary ductal dilatation. The hepatic veins and portal veins are patent. Gallbladder: Unremarkable. Spleen: Normal in size and attenuation. Pancreas: Unremarkable. Adrenal glands: Unremarkable. Kidneys: The contrast enhanced kidneys are normal in size and without hydronephrosis. The kidneys enhance symmetrically. Abdominal vasculature: The abdominal aorta is normal in course and caliber. Bowel: There is no bowel obstruction. There is rectosigmoid wall thickening with marked inflammatory stranding around the rectum and the distal sigmoid colon. No CT evidence of rectocele is seen. No organized fluid collection is identified. The appendix is well-visualized and normal. Peritoneum: There is no intraperitoneal free air or abdominal ascites. Lymphadenopathy: None. Pelvic viscera: The bladder, uterus, and adnexa are normal as visualized. Skeletal structures: No lytic or blastic lesions are seen. IMPRESSION: 1. There is rectosigmoid wall thickening with marked perirectal inflammation. Although some of this could be related to the reported history of recent surgery, the appearance suggests severe proctitis. Clinical correlation will be essential. 2. No organized fluid collection is seen to suggest abscess. 3. No bowel obstruction is identified. Electronically signed by: Noah Peace M.D. 09/19/2017 7:34 AM Dictated Date/Time: 09/19/2017 7:27 AM
--- NOTE | 2017-09-22 12:08 | Pharmacy Progress Note ---
ED Pharmacist Progress Note Date of Service: Sep 22, 2017. Patient seen with nausea,headache, fever, chills, abdominal cramping s/p rectocele repair by Dr. Hancock 09/12. Discharged on doxycycline and metronidazole which will not cover the E. coli growing from the genital culture. Per PA note, patient to follow up with Dr. Hancock who is managing post- op care. Called Dr. Hancock's office and spoke with nurse and relayed the culture result and current antibiotics stating that they would not cover the E. coli. She stated they had the culture result available through [employer]. She would discuss the result with Dr. Hancock and they would alter antibiotics as necessary from here on out. I did stress to call back with any issues as it is our primary concern that the patient be treated with appropriate antibiotics. She verbalized understanding.
== END 2017-09-19 03:08 | disposition home or self-care (01) ==
LOC: C.EDB 21:12 → C.EDA 09-19 03:08
DX: T81.4XXA Infection following a procedure, initial encounter (principal); Y84.9 Medical procedure, unspecified as the cause of abnormal reaction of the patient, or of later complication, without mention of misadventure at the time of the procedure; R50.9 Fever, unspecified; R11.0 Nausea; R51 Headache

== ENCOUNTER → 2017-10-16 | Outpatient (CLI) | payer BC ==
[~2017-10-16] MED LIST changes: +DOXY100C2 PO; +ONDA4TAB10 SL
[2017-10-16 14:44] LABS: HEMATOCRIT 37.1 % (37-47)
== END | disposition home or self-care (01) ==
LOC: C.LAB1850 12:47
PROVIDERS: ATTEND Obstetrics & Gynecology
DX: D64.9 Anemia, unspecified (principal)